=== PATIENT | male | born 1970 | race African-American/Black ===

== ENCOUNTER 2020-11-05 17:46 | Emergency (ER) | payer SELFPAY ==
--- NOTE | ~2020-11-05 | XR_ITS ---
EXAMINATION: XR chest 1V portable DATE: 11/05/2020 19:20 INDICATION: Chest pain. Cough. TECHNIQUE: A single frontal view of the chest was obtained. COMPARISON: None. FINDINGS: The lungs are hyperexpanded with lucencies, consistent with emphysema. There are mild airsp makenzie opacities in the mid and lower lung zones. No pleural effusion or pneumothorax. The heart size is normal. IMPRESSION: 1. Mild airspace opacities in the mid and lower lung zones, consistent with atelectasis/scarring vers us pneumonia. 2. Emphysema. Reviewed, dictated and finalized at location A. IMPRESSION: 1. Mild airspace opacities in the mid and lower lung zones, consistent with ate lectasis/scarring versus pneumonia. 2. Emphysema.
[2020-11-05 17:54] VITALS: BP 125/84; PULSE 85; RESP 14; TEMP 36.2; O2SAT 100
[2020-11-05 18:13] LABS: Hematocrit 32.6 % (42.0-52.0); Hemoglobin 11.7 g/dL (14.0-18.0); Immature Platelet Fraction Pct 3.8 % (0.9-11.2); Mean Corpuscular HGB Conc 35.9 g/dl (32-36); Mean Corpuscular Hemoglobin 27.9 pg (26-34); Mean Corpuscular Volume 77.6 fl (80-100); Mean Platelet Volume 9.7 fl (7.4-10.4); Platelet Count Result 460 k/mm3 (150-375); Red Cell Distribution Width 17.8 % (11.5-14.5); White Blood Count 9.2 K/mm3 (4.5-10.0)
--- NOTE | 2020-11-05 18:19 | PC.NURSE ---
Patient resting comfortably, playing on their cell phone, stating their pain is a 10/10.
[2020-11-05 18:20] LABS: Add Urine Microscopic? YES; Appearance Urine Clear (Clear); Bilirubin Urine Negative (Negative); Blood Urine Negative (Negative); Color Urine Yellow (Yellow); Glucose Urine UA Negative (Negative); Ketones Urine Negative (Negative); Leukocyte Esterase Ur 1+ LEU/UL (Negative); Mucus Urine Rare /lpf; Nitrate Urine Negative (Negative); Protein Urine Negative (Negative); RBC Urine 0-2 /hpf (0-2); Specific Grav Ur 1.008 (1.001-1.035); Squamous Epithelial Cell Urine Occasional /hpf (Few)
[2020-11-05 18:24] LABS: Potassium 3.4 mmol/L (3.4-5.0)
[2020-11-05 18:27] LABS: Alanine Aminotransferase 14 U/L (4-50); Albumin Level 4.2 g/dL (3.5-5.1); Alkaline Phosphatase 101 U/L (38-126); Anion Gap 7 mmol/L (8-16); Aspartate Amino Transferase 31 U/L (17-59); Bilirubin,Total 0.8 mg/dL (0.2-1.3); Blood Urea Nitrogen 5 mg/dL (9-20); Calcium 8.6 mg/dL (8.4-10.2); Carbon Dioxide 24 mmol/L (22-30); Chloride 109 mmol/L (98-107); Estimated CRCL calculation 127 ml/min; Estimated Glomerular Filt Rate > 60; Glucose 131 mg/dL (75-110); Lipase 27 U/L (23-300); Sodium 140 mmol/L (137-145)
[2020-11-05 18:40] LABS: Monocytes Absolute Manual 0.73 K/mm3 (0.1-0.90); Monocytes Percent Manual 8 % (3-9); Neutrophils Percent Manual 43 % (46-73); Platelet Estimate Increased (Adequate); Total Cells Counted 100
[2020-11-05 18:41] LABS: Anisocytosis 2+ (NORMAL)
[2020-11-05 18:42] LABS: Target Cells 2+ (NORMAL)
--- NOTE | 2020-11-05 19:14 | ED.GENADULT ---
HPI - General Adult General Chief complaint: Unspecified Stated complaint: Sickle Cell Pain, Nausea Time Seen by Provider: 11/05/20 19:02 History of Present Illness HPI narrative: 49 yo w/ h/o sickle cell disease, HIV presents to the ED for pain. He reports that he has severe pain all over his body. This includes pain in his chest. He also reports associated cough, congestion and sinus pressure. He says that he typically takes 15 mg oxycodone for his pain at home. He reports that he has never been here before. he is in town for a . No fever, chills, vomiting, abdominal pain. Related Data Home Medications Medication Instructions Recorded Confirmed [id number] DF 1 tablet PO DAILY 11/05/20 [Complera] oxycodone mg PO 11/05/20 Allergies Allergy/AdvReac Type Severity Reaction Status Date / Time acetaminophen [From Tylenol] Allergy Hives Verified 11/05/20 17:57 ibuprofen Allergy Hives Verified 11/05/20 17:57 ketorolac [From Toradol] Allergy Hives Verified 11/05/20 17:57 gabapentin AdvReac Numbness Verified 11/05/20 17:57 Review of Systems Review of Systems: All systems reviewed & are unremarkable except as noted in HPI and below Constitutional: Constitutional: Reports lethargy and Reports poor appetite Cardiovascular: Cardiovascular: Reports chest pain Respiratory: Respiratory: Denies cough and Denies dyspnea Gastrointestinal: Gastrointestinal: Reports abdominal pain and Reports nausea Musculoskeletal: Musculoskeletal: Reports stiffness Psychiatric: Psychiatric: Denies homicidal ideation and Denies suicidal ideation [facility] Past Medical History Medical History (Updated 11/08/20 @ 18:25 by aZch Ramires MD) HIV disease Sickle cell anemia Social History Social History (Updated 11/08/20 @ 18:26 by Zach Ramires MD) Smoking status: Current every day smoker Sexual Orientation (if Verbalized by the Patient): Lesbian, Sagastume, or Homosexual Exam Const: General: healthy appearing, comfortable, no acute distress, alert and ill appearing chronically Nutritional Appearance: thin Orientation/consciousness: patient oriented x3 HENMT: Head: normal to inspection Neck: Neck: normal visual inspection Chest: Chest palpation & inspection: tenderness Resp: Effort & Inspection: normal respiratory effort Auscultation: clear to auscultation bilaterally, no rales, no rhonchi and no wheezes Cardio: Jugular venous distension: no JVD Rate: regular rate Rhythm: regular rhythm Heart sounds: no murmurs GI: Inspection: non-distended GI Palp: Yes Soft to palpation and No Tenderness to palpation present (GI) Skin: General skin exam: normal color Neuro: General: patient oriented x3 and moves all extremities Speech: normal speech Extrem: General: no edema Psych: Appearance: well kempt Affect: normal affect Course Vital Signs Vital signs: Vital Signs Temperature 36.2 C L 11/05/20 17:54 Pulse Rate 85 11/05/20 17:54 Respiratory Rate 14 11/05/20 17:54 Blood Pressure 125/84 11/05/20 17:54 Pulse Oximetry 100 11/05/20 17:54 Temperature 36.3 C L 11/05/20 22:28 Pulse Rate 78 11/05/20 22:09 Respiratory Rate 13 11/05/20 22:09 Blood Pressure 121/86 11/05/20 22:09 Pulse Oximetry 100 11/05/20 22:09 Medical Decision Making MDM Narrative Medical decision making narrative: Hre appears comfortable. Labs are not suggestive of sickling crisis. Feeling improved and ready to go after 2 1 mg dilaudid doses. Possible infiltrate on x-ray. presentation not suggestive of pneumonia or acute chest. Differential Diagnosis Differential Diagnosis: Sickle cell crisis. chronic pain, malingering, other Vital Signs Vital Signs: Vital Signs Temperature 36.2 C L 11/05/20 17:54 Pulse Rate 85 11/05/20 17:54 Respiratory Rate 14 11/05/20 17:54 Blood Pressure 125/84 11/05/20 17:54 Pulse Oximetry 100 11/05/20 17:54 Temperature 36.3 C L 11/05/20 22
[2020-11-05 20:00] VITALS: BP 96/75; PULSE 71; RESP 14; O2SAT 100
[2020-11-05 20:39] LABS: Immature Reticulocyte Fraction 26.8 % (3.0-15.9); Reticulocytes Absolute 0.12 B/L (32.2-175.7)
[2020-11-05] MEDS: SODIUM CHLORIDE 0.9% IV 1,000 ML 999 ML IV CONT (20:54)
[2020-11-05] MEDS: HYDROmorphone HCL INJ (*CRX) 1 MG/ML SYR IV PUSH ×2 (20:54→21:58)
[2020-11-05 21:24] VITALS: TEMP 36.2
[2020-11-05] MEDS: PROCHLORPERAZINE EDISYLATE 10 MG/2 ML VIAL IV PUSH (21:58)
[2020-11-05 22:09] VITALS: BP 121/86; PULSE 78; RESP 13; TEMP 36.3; O2SAT 100
[2020-11-05 22:28] VITALS: TEMP 36.3
== END 2020-11-05 22:43 | disposition home or self-care (01) ==
PROVIDERS: Emergency Medicine; Emergency Provider Emergency Medicine
DX: D57.00 Hb-SS disease with crisis, unspecified (principal); Z21 Asymptomatic human immunodeficiency virus [HIV] infection status; F17.200 Nicotine dependence, unspecified, uncomplicated; J43.9 Emphysema, unspecified
CPT/HCPCS: 36415; 71045; 80053; 81001; 83690; 85025; 85046; 85055; 87086; 87088; 96361; 96374; 96375; 96376; 99284; J0780; J1170; J7030